=== PATIENT | female | born 1980 | race Caucasian/White ===

== ENCOUNTER 2017-02-02 05:15 | Day surgery (SDC) | payer BC ==
[~2017-02-02] VITALS: Ht 157.5 cm; Wt 77.6 kg
[~2017-02-02 05:15] MED LIST: TYLENOL REGULA325 MG PO
[2017-02-02 05:48] VITALS: BP 114/56
[2017-02-02 14:31] VITALS: BP 121/60
[2017-02-02] MEDS ORDERED: ENDOCET 5-3251 EACH PO (16:52)
[2017-02-02] MEDS ORDERED: IBUPROFEN800 MG PO (16:52)
[2017-02-02 19:51] VITALS: BP 107/59
[2017-02-03 00:47] VITALS: BP 101/56
[2017-02-03 03:24] VITALS: BP 97/52
[2017-02-03 06:03] LABS: HEMATOCRIT 36.4 % (36.0-46.0); MCH 29.6 PG (29.0-34.0); MCHC 33.8 G/DL (30.0-36.0); MCV 87.5 FL (83-99); MEAN PLAT.VOLUME 10.7 uM^3 (9.5-12.4); PLATELET COUNT 243 K/uL (156-360); RBC DIS.WIDTH-CV 12.8 % (11.8-14.6); WHITE BLOOD COUNT 15.9 K/uL (4.1-10.2)
[2017-02-03 06:04] LABS: RED BLOOD COUNT 4.16 M/uL (3.80-5.20)
== END 2017-02-03 10:00 | disposition home or self-care (01) ==
LOC: SDC 05:15 → ENRESERV 11:06 → 2SOUTH 11:07 → SDC 11:10 → ENRESERV 11:17 → 2EAST 14:26 → SDC 15:31 → 2EAST 02-03 10:00
PROVIDERS: Obstetrics & Gynecology Obstetrics
DX: D25.9 Leiomyoma of uterus, unspecified (principal); N73.6 Female pelvic peritoneal adhesions (postinfective); G89.29 Other chronic pain; F17.200 Nicotine dependence, unspecified, uncomplicated
CPT/HCPCS: 85027; 88307; G0378; J0131; J0330; J0690; J1100; J1170; J1885; J2250; J2405; J2710; J3010; J7120; S0020; S0074